=== PATIENT | female | born 1985 | race American Indian/Alaskan Native ===

== ENCOUNTER 2017-04-03 13:43 | Emergency (ER) | payer OTHER ==
[2017-04-03 13:54] VITALS: BP 103/70
[2017-04-03] MEDS ORDERED: XYLOCAINE 1% MPF 5 mL INFILTRATI ONE (14:08)
[2017-04-03] MEDS ORDERED: ROCEPHIN IM ONE (14:08)
--- NOTE | 2017-04-03 14:10 | Emergency Department Report ---
- General Chief Complaint: Laceration/Recheck/Suture Stated Complaint: SUTURE REMOVAL Time Seen by Provider: 04/03/17 14:06 Source: patient, family, RN notes reviewed, old records reviewed Mode of arrival: Ambulatory Limitations: No Limitations - History of Present Illness Initial Comments: pt presents to the er for a suture removal but she has no sutures she has large open wound rle she is also co r foot pain that no one she states has addressed and this is 3rd time here -: Gradual Location: other (rle) Extremity Location: Right: Lower Leg, Foot Patient Tetanus UTD: Yes Context: accidental Associated Symptoms: denies: fever - Related Data Previous Rx's Medication Instructions Recorded Last Taken Type HYDROcodone/APAP 5-325 [[place] 1 each PO Q8HR PRN #15 tablet 06/29/13 Unknown Rx 5-325 mg TAB] Clindamycin [Clindamycin CAP] 300 mg PO Q8H 10 Days 08/04/13 Unknown Rx Amoxicillin/Potassium Clav 1 each PO TID #21 tablet 03/23/17 Unknown Rx [Augmentin 500-125 Tablet] Allergies Allergy/AdvReac Type Severity Reaction Status Date / Time Sulfa (Sulfonamide Allergy Unknown Verified 05/22/13 14:15 Antibiotics) ED Review of Systems ROS: Stated complaint: SUTURE REMOVAL Other details as noted in HPI Comment: All other systems reviewed and negative Musculoskeletal: other (r foot pain) Skin: other (wound rle) ED Past Medical Hx - Past Medical History Hx GERD: No Hx Asthma: No Additional medical history: thyroid dz. hiatal hernia - Surgical History Additional Surgical History: thyroidectomy - Social History Smoking Status: Never Smoker Substance Use Type: None - Medications Home Medications: Home Medications Medication Instructions Recorded Confirmed Last Taken Type HYDROcodone/APAP 5-325 [[place] 1 each PO Q8HR PRN #15 tablet 06/29/13 Unknown Rx 5-325 mg TAB] Clindamycin [Clindamycin CAP] 300 mg PO Q8H 10 Days 08/04/13 Unknown Rx Amoxicillin/Potassium Clav 1 each PO TID #21 tablet 03/23/17 Unknown Rx [Augmentin 500-125 Tablet] ED Physical Exam - General Limitations: No Limitations General appearance: alert - Head Head exam: Present: atraumatic - Eye Eye exam: Present: PERRL - ENT ENT exam: Present: mucous membranes moist - Neck Neck exam: Present: normal inspection - Respiratory Respiratory exam: Present: normal lung sounds bilaterally - Cardiovascular Cardiovascular Exam: Present: regular rate - GI/Abdominal GI/Abdominal exam: Present: soft - Rectal Rectal exam: Present: deferred - Expanded Lower Extremity Exam Right Knee exam: Present: normal inspection Lower Leg exam: Present: swelling, erythema (open wound rle from a dog bite that was sutured here in ed. pt came back w infection; and here now 3rd time) Foot/Toe exam: Present: full ROM, tenderness (r lateral foot), swelling (mild) Neuro vascular tendon exam: Present: no vascular compromise Gait: Positive: observed and limited by pain 1 - wound area. 3 inches long by 3/4 inc wide. pink bed. granulating well. n/v intact. no drainage. no surrounding erythema. good pulses and rapid cap refill 2 - site of pain in foot. mild swelling. n/v intact - Back Exam Back exam: Present: normal inspection. Absent: CVA tenderness (R), CVA tenderness (L) - Neurological Exam Neurological exam: Present: alert, oriented X3, CN II-XII intact, reflexes normal - Psychiatric Psychiatric exam: Present: normal affect, normal mood - Skin Skin exam: Present: warm, dry ED Course Vital Signs 04/03/17 13:51 Temperature 97.8 F Pulse Rate 82 Respiratory 18 Rate Blood Pressure 103/70 O2 Sat by Pulse 100 Oximetry - Reevaluation(s) Reevaluation #1: 04/03/17 16:16 to er for suture removal she has no sutures provider cleaned wound removed a piece of compromised tissue to be sure no suture wound bed is clean and pink no purulent drainage no fever non toxic non septic appearing full rom of foot n/v intact ambulatory IM rocephin pt taking amox at home wound care re taught to pt and her sister Reevaluation #2: 04/03/17 16:19 given co foot pain x ray completed results discussed w pt ortho shoe and crutches pt to follow up with pcp and ortho next week she will continue to take meds her and her sister verbalize understanding of dc poc ED Medical Decision Making - Medical Decision Making see note - Differential Diagnosis open wound from dog bite sutured here in ed Critical care attestation.: If time is entered above; I have spent that time in minutes in the direct care of this critically ill patient, excluding procedure time. ED Disposition Clinical Impression: Open wound, Dog bite of ankle, Foot pain Disposition: TO HOME OR SELFCARE Is pt being admited?: No Does the pt Need Aspirin: No Condition: Stable Instructions: Wound Infection (ED) Additional Instructions: clean wound twice per day with soap and water apply dressing and dermaplast no oitment, no betadine or peroxide ortho shoe and crutches follow up ortho for foot pain continue antibiotics until gone Referrals: PRIMARY CARE, [Primary Care Provider] - 3-5 Days ANGELITO AVILA MD [Staff Physician] - 3-5 Days SIMA ALVES MD [Staff Physician] - 3-5 Days Time of Disposition: 15:38
--- NOTE | 2017-04-03 15:01 | XRay Report ---
FINAL REPORT PROCEDURE: XR FOOT 3+V RT TECHNIQUE: Four views of the right foot are submitted. HISTORY: co r lateral foot pain COMPARISON: None FINDINGS: There is no evident fracture or dislocation. Joint spaces are maintained. There is no radiopaque foreign body. Mild soft tissue swelling is present overlying the base of the 5th metatarsal. IMPRESSION: Mild soft tissue swelling overlying the base of the 5th metatarsal without evident fracture. Consider if symptoms persist follow-up with MRI.
== END 2017-04-03 16:14 | disposition home or self-care (01) ==
LOC: ED 13:43
DX: S91.001D Unspecified open wound, right ankle, subsequent encounter (principal); Z88.2 Allergy status to sulfonamides; X58.XXXD Exposure to other specified factors, subsequent encounter
CPT/HCPCS: 73630; 96372; 99284; J0696